=== PATIENT | male | born 1955 | race Caucasian/White ===

== ENCOUNTER → 2016-11-04 | Outpatient (CLI) | payer BC ==
[~2016-11-04] MED LIST: BROM0.07 OPL; CZR50 PO; DOXA4TAB2 PO; LEVO112T2 PO; PRED1SUS3 OPL; SILO8CAP PO
[2016-11-04 12:44] LABS: ESTIMATED AVERAGE GLUCOSE 108 mg/dl; HA1C FLAG Normal (Normal)
[2016-11-04 12:55] LABS: CHOLESTEROL/HDL RATIO 3.8; THYROID STIMULATING HORMONE 1.88 uIu/ml (0.300-4.500)
== END | disposition home or self-care (01) ==
LOC: C.LABBFT 07:54
PROVIDERS: ATTEND Internal Medicine
DX: Z00.00 Encounter for general adult medical examination without abnormal findings (principal); I10 Essential (primary) hypertension; R53.83 Other fatigue; Z13.1 Encounter for screening for diabetes mellitus; E78.5 Hyperlipidemia, unspecified; E03.9 Hypothyroidism, unspecified

== ENCOUNTER → 2016-11-21 | Outpatient (CLI) | payer BC ==
[2016-11-21 19:50] LABS: BLOOD UREA NITROGEN 16 mg/dl (7-18); BUN/CREATININE RATIO 18.5 (10-20); CALCIUM 8.7 mg/dl (8.5-10.1); CARBON DIOXIDE 28 mmol/L (21-32); CHLORIDE 106 mmol/L (98-107); CREATININE 0.88 mg/dl (0.60-1.40); GLUCOSE 90 mg/dl (70-99); POTASSIUM 3.9 mmol/L (3.5-5.1); SODIUM 142 mmol/L (136-145)
== END | disposition home or self-care (01) ==
LOC: C.LABBFT 12:46
PROVIDERS: ATTEND Internal Medicine
DX: I10 Essential (primary) hypertension (principal)

== ENCOUNTER 2016-12-18 07:13 | Emergency (ER) | payer BC ==
[~2016-12-18] VITALS: Ht 177.8 cm; Wt 111.9 kg
[~2016-12-18 07:13] MED LIST changes: -CZR50 PO
[2016-12-18 07:17] VITALS: TEMP 37.2; Ht 177.8 cm; Wt 111.9 kg
--- NOTE | 2016-12-18 08:15 | DIAGNOSTIC IMAGING REPORT ---
LEFT KNEE 3 VIEWS CLINICAL HISTORY: Left knee pain pain COMPARISON: None. DISCUSSION: Minimal degenerative change patellofemoral and medial joint compartments. No significant joint effusion. Cortical margins are intact. There is no evidence for soft tissue swelling. IMPRESSION: Minimal degenerative change. No acute process. Electronically signed by: German Patterson M.D. 12/18/2016 8:14 AM Dictated Date/Time: 12/18/2016 8:13 AM
[2016-12-18] MEDS ORDERED: CZR50 PO (08:39)
[2016-12-18 08:43] VITALS: BP 143/92; PULSE 65; O2SAT 97
--- NOTE | 2016-12-18 17:17 | EMERGENCY ROOM VISIT NOTE ---
ED Visit Note First contact with patient: 07:30 CHIEF COMPLAINT: Left Knee injury HISTORY OF PRESENT ILLNESS: This 61-year-old white male patient injured the left knee a few days ago when he was walking in the [employer]. He Accidentally stepped in a hole. He believes he hyperextended his knee. States there was no snap or pop. He is unsure if he twisted the knee. Pain is persistent along the medial aspect. He denies any swelling. On Monday he did have significant stiffness after riding in the car. He thought it would go away but it has not. No prior history of significant knee injury. His accompanies him today. No numbness or tingling. No treatment yet. REVIEW OF SYSTEM: HEENT: No dizziness, visual problems, hearing loss, or tinnitus. There is no difficulty swallowing and no oral lesions are present. PULMONARY: No cough, shortness of breath, sputum production or hemoptysis. CARDIOVASCULAR: No chest pain, palpitations, shortness of breath or peripheral edema. GASTROINTESTINAL: No diarrhea, constipation, nausea, vomiting, or abdominal pain. GENITOURINARY: No dysuria, frequency, urgency or nocturia. NEUROLOGIC: No weakness, muscle tenderness, epilepsy or history of neurological problems. MUSCULOSKELETAL: No history of joint tenderness/swelling. No history of arthritis or arthralgias. SKIN: No rashes or lesions. PSYCHIATRIC: No history of depression or mental illness. ENDOCRINE: No history of diabetes or abnormal hair growth. PMH: Significant for hypertension, hypothyroidism, and BPH Previous surgeries: None. Current medications: Reviewed and filed in patient's chart Allergies: NKDA Family history: Significant for diabetes, hypertension, and cancer. Mother is living. SOCIAL HISTORY: Patient lives at home with his . No tobacco use. Occasional EtOH use. Employed. PHYSICAL EXAM: Vital Signs: Reviewed Nurse's notes. Afebrile. MENTAL STATUS: Alert, oriented, and cooperative. Sitting on a bed. No acute distress. Skin: Warm and dry with good turgor. No rashes or lesions. No ecchymosis or erythema. The patient is not diaphoretic. No abrasions. No intra-articular effusion. Musculoskeletal: The left knee has no obvious deformity. There is no joint effusion. He has full terminal extension with some effort. Flexion to greater than 100. Stable cruciate and collateral ligaments. Normal Viv. He has focal pain with palpation over the medial joint line. Positive Baldo testing medially. No lateral joint line discomfort. No defect of the patellar tendon or quadriceps tendon. No peripatellar discomfort. He is able to set his quad and do a straight leg raise. Ambulatory with a mildly antalgic gait. Neurologic: Gross sensation is intact across both lower extremities by soft touch. EMERGENCY DEPARTMENT COURSE: X-ray does not show any fractures or fluid in the joint. This was read by radiology. Mild medial joint space narrowing. DIAGNOSIS: Left medial knee pain DISCHARGE INSTRUCTIONS: Patient and his were educated regarding today's findings. Conservative care measures were discussed. Possibility of medial meniscal tear was discussed. They would like to follow-up with Dr. Amin to discuss additional imaging. Patient has a knee sleeve. He may use this for compression and support. Tylenol and Motrin every 6 hours as needed for discomfort. He should use a cane or walking stick in the right hand. Avoid excessive walking, chills, or uneven ground. Crutches were offered. He declined. Ice to and elevation to the knee frequently for the next 72 hours. They were reassured that I do not suspect fracture or dislocation. Current/Historical Medications Scheduled Levothyroxine Sodium (Synthroid), 112 MCG PO HS Losartan Potassium (Losartan Potassium), 50 MG PO DAILY Silodosin (Rapaflo), 8 MG PO QAM Allergies Coded Allergies: No Known Allergies (Verified , 12/18/16) Vital Signs Date Time Temp Pulse Resp B/P Pulse Ox O2 Delivery O2 Flow Rate FiO2 12/18/16 08:43 65 18 143/92 97 12/18/16 07:17 37.2 76 20 152/99 96 Room Air Departure Information Referrals Zuhair Chavez M.D. (PCP) Patient Instructions My [facility]
== END 2016-12-18 08:43 | disposition home or self-care (01) ==
LOC: C.EDB 07:14
DX: M25.562 Pain in left knee (principal); S89.92XA Unspecified injury of left lower leg, initial encounter; I10 Essential (primary) hypertension; E03.9 Hypothyroidism, unspecified; N40.0 Benign prostatic hyperplasia without lower urinary tract symptoms; Z79.899 Other long term (current) drug therapy; W18.42XA Slipping, tripping and stumbling without falling due to stepping into hole or opening, initial encounter; Y93.01 Activity, walking, marching and hiking; Z82.49 Family history of ischemic heart disease and other diseases of the circulatory system; Z83.3 Family history of diabetes mellitus

== ENCOUNTER → 2017-02-01 | Outpatient (CLI) | payer BC ==
[~2017-02-01] MED LIST changes: -BROM0.07 OPL; +CZR50 PO; -DOXA4TAB2 PO; -PRED1SUS3 OPL
[2017-02-01 12:51] LABS: % FREE PSA 19.9 %; FREE PSA 1.66 ng/ml; PROSTATE SPECIFIC ANTIGEN 8.33 ng/ml (0.000-4.000)
== END | disposition home or self-care (01) ==
LOC: C.LABBFT 11:02
PROVIDERS: ATTEND Urology
DX: N40.0 Benign prostatic hyperplasia without lower urinary tract symptoms (principal); R97.20 Elevated prostate specific antigen [PSA]; R39.198 Other difficulties with micturition

== ENCOUNTER → 2017-03-22 | Outpatient (CLI) | payer BC ==
[2017-03-22 13:39] LABS: BLOOD UREA NITROGEN 16 mg/dl (7-18); BUN/CREATININE RATIO 17.2 (10-20); CREATININE 0.95 mg/dl (0.60-1.40)
== END | disposition home or self-care (01) ==
LOC: C.LABBFT 10:57
PROVIDERS: ATTEND Urology
DX: E78.5 Hyperlipidemia, unspecified (principal); N40.0 Benign prostatic hyperplasia without lower urinary tract symptoms

== ENCOUNTER → 2017-08-29 | Outpatient (CLI) | payer BC ==
[~2017-08-29] MED LIST changes: +GADAVIST IV PRN
--- NOTE | 2017-08-29 09:32 | DIAGNOSTIC IMAGING REPORT ---
PROSTATE MRI COMBO CLINICAL HISTORY: 62 years-old Male presenting with elevated PSA with negative biopsies in the past. PSA 8.4 ng/mL. TECHNIQUE: Multisequence, multiplanar MR imaging of the prostate was performed before and after the administration of intravenous contrast. Additional postprocessing was performed on a separate [place] workstation by the radiologist for 3-D volumetric segmentation of the prostate and contouring of region(s) of interest (VINCENZO) for targeting. IV contrast: 10 cc intravenous Gadavist COMPARISON: None. FINDINGS: Prostate: The prostate measures 5.8 x 5.6 x 6.3 cm (DynaCAD prostate boundary segmentation volume 96 mL). No significant changes of benign prostatic hyperplasia. Precontrast T1 weighted imaging demonstrates the left seminal vesicle appears atrophic. The right seminal vesicle demonstrates decreased T2 signal. This is a nonspecific finding. Suspicious lesion(s) described below: Lesion (DynaCAD VINCENZO) 1: Location: Left anterior and posterior transition zone at the apex. The lesion does not extend across the midline. Size: 13 mm (as measured on ADC for PZ lesion and T2WI for TZ lesion) T2W: 4. No evidence of extraprostatic extension. DWI: 3. Focal mildly/moderately hypointense on ADC and isointense/mildly hyperintense on high b-value DWI. DCE: Negative. No early enhancement. PI-RADS: 4. Clinically significant cancer is likely to be present. Bladder: There is bladder wall thickening Bowel: Visualized portion of the rectum normal. Peritoneum: No free fluid in the pelvis. Lymph nodes: No lymphadenopathy in the visualized portion of the pelvis. Vasculature: Iliac vessels patent. Osseous structures: Normal bone marrow signal intensity. There is a septated right-sided hydrocele. IMPRESSION: 1. 13 mm lesion in the left anterior posterior transitional zone at the apex. PI-RADS 4. Clinically significant cancer is likely to be present. This lesion has been segmented for targeted biopsy. 2. Benign prostatic hyperplasia. Electronically signed by: Kirt Casillas M.D. 08/29/2017 9:31 AM Dictated Date/Time: 08/29/2017 9:06 AM
== END | disposition home or self-care (01) ==
LOC: C.MRIBC 07:47
PROVIDERS: ATTEND Urology
DX: R97.20 Elevated prostate specific antigen [PSA] (principal); N40.0 Benign prostatic hyperplasia without lower urinary tract symptoms

== ENCOUNTER → 2017-09-27 | Outpatient (CLI) | payer BC ==
[~2017-09-27] MED LIST changes: -GADAVIST IV PRN
== END | disposition home or self-care (01) ==
LOC: C.PATHSPEC 17:25
PROVIDERS: ATTEND Urology
DX: R97.20 Elevated prostate specific antigen [PSA] (principal)

== ENCOUNTER → 2017-11-16 | Outpatient (CLI) | payer BC ==
[2017-11-16 12:43] LABS: BASO % 0.6 %; BASO ABS # 0.02 K/uL (0-0.2); EOS ABS # 0.18 K/uL (0-0.5); HEMATOCRIT 42.9 % (42-52); HEMOGLOBIN 14.4 g/dL (14.0-18.0); LYMPH % 46.8 %; LYMPH ABS # 1.67 K/uL (1.2-3.4); MEAN CELL VOLUME 87.6 fL (80-100); MEAN CORPUSCULAR HEMOGLOBIN 29.4 pg (25-34); MEAN CORPUSCULAR HGB CONC 33.6 g/dl (32-36); MEAN PLATELET VOLUME 11.6 fL (7.4-10.4); MONO % 9.8 %; MONO ABS # 0.35 K/uL (0.11-0.59); NEUT % 37.8 %; NEUT ABS # 1.35 K/uL (1.4-6.5); PLATELET COUNT 186 K/uL (130-400); RED CELL DISTRIBUTION WIDTH CV 12.8 % (11.5-14.5); RED CELL DISTRIBUTION WIDTH SD 40.9 fL (36.4-46.3); WHITE BLOOD COUNT 3.57 K/uL (4.8-10.8)
[2017-11-16 12:53] LABS: ALBUMIN 3.4 gm/dl (3.4-5.0); ALT/SGPT 51 U/L (12-78); AST/SGOT 31 U/L (15-37); BLOOD UREA NITROGEN 20 mg/dl (7-18); CALCIUM 8.9 mg/dl (8.5-10.1); CARBON DIOXIDE 30 mmol/L (21-32); CHOLESTEROL 161 mg/dl (0-200); CREATININE 0.87 mg/dl (0.60-1.40); GLUCOSE 90 mg/dl (70-99); POTASSIUM 4.7 mmol/L (3.5-5.1); SODIUM 138 mmol/L (136-145); TOTAL PROTEIN 7.5 gm/dl (6.4-8.2)
[2017-11-16 13:03] LABS: ALKALINE PHOSPHATASE 95 U/L (45-117); LDL CHOLESTEROL CALCULATED 111 mg/dl
[2017-11-16 13:06] LABS: HEMOGLOBIN A1C 5.3 % (4.5-5.6)
== END | disposition home or self-care (01) ==
LOC: C.LABBFT 07:43
PROVIDERS: ATTEND Internal Medicine
DX: I10 Essential (primary) hypertension (principal); E03.9 Hypothyroidism, unspecified; E78.5 Hyperlipidemia, unspecified

== ENCOUNTER → 2018-01-02 | Outpatient (CLI) | payer BC ==
[2018-01-02 17:12] LABS: BASO % 0.6 %; BASO ABS # 0.04 K/uL (0-0.2); EOS % 4.7 %; EOS ABS # 0.32 K/uL (0-0.5); HEMATOCRIT 42.6 % (42-52); HEMOGLOBIN 14.8 g/dL (14.0-18.0); IG# 0.01 K/uL (0.00-0.02); LYMPH % 37.6 %; LYMPH ABS # 2.58 K/uL (1.2-3.4); MEAN CELL VOLUME 86.1 fL (80-100); MEAN CORPUSCULAR HEMOGLOBIN 29.9 pg (25-34); MEAN CORPUSCULAR HGB CONC 34.7 g/dl (32-36); MEAN PLATELET VOLUME 11.1 fL (7.4-10.4); MONO % 7.6 %; MONO ABS # 0.52 K/uL (0.11-0.59); NEUT % 49.4 %; PLATELET COUNT 211 K/uL (130-400); RED CELL DISTRIBUTION WIDTH CV 12.9 % (11.5-14.5); RED CELL DISTRIBUTION WIDTH SD 40.6 fL (36.4-46.3); WHITE BLOOD COUNT 6.87 K/uL (4.8-10.8)
== END | disposition home or self-care (01) ==
LOC: C.LABBFT 15:16
PROVIDERS: ATTEND Physician Assistant Medical
DX: R79.9 Abnormal finding of blood chemistry, unspecified (principal)